=== PATIENT | female | born 1955 | race Hispanic/Latino ===

== ENCOUNTER 2018-04-01 12:10 | Emergency (ER) | payer SELFPAY ==
[~2018-04-01] VITALS: Ht 147.3 cm; Wt 29.5 kg
--- NOTE | 2018-04-01 13:19 | Diagnostic Imaging Report ---
Exam: Right ankle 3 views right foot 3 views History: Fell on ankle and foot Comparison: None. Findings: Ankle: No acute, displaced fracture or dislocation. The tibial plafond and talar dome are intact. The ankle mortise is maintained. Crescentic radiopacity projecting over the distal tibia and fibula is external to the patient. Foot: No acute, displaced fracture or dislocation. Appropriate interval between the medial cuneiform and second metatarsal base is maintained, in keeping with an intact Lisfranc ligament. Joint spaces are well-maintained. Soft tissues are unremarkable. Impression: No acute osseous abnormalities. Signed by: Dr. Albin Friedman M.D. on 04/01/2018 1:16 PM
[2018-04-01] MEDS ORDERED: LIDOCAINE 2%/ EPINEPHRINE 20ML MDV INJ ONE (14:00)
== END 2018-04-01 14:10 | disposition home or self-care (01) ==
LOC: FSED 12:10
DX: M25.571 Pain in right ankle and joints of right foot (principal); S91.011A Laceration without foreign body, right ankle, initial encounter; W45.8XXA Other foreign body or object entering through skin, initial encounter; Y92.008 Other place in unspecified non-institutional (private) residence as the place of occurrence of the external cause
CPT/HCPCS: 12032; 73610; 73630; 99284; J2001